=== PATIENT | female | born 1990 | race Caucasian/White ===

== ENCOUNTER 2016-06-25 11:20 | Emergency (ER) | payer SELFPAY ==
--- NOTE | 2016-06-28 18:24 | ER ---
ADMIT: 06/25/2016 RM/LOC: ER [facility] MR#: [id number] [place], [place] [address] [address] [place] [address] Emergency Room Report SEX: F AGE: 26 : 1990 DATE: 06/25/2016 The patient is a 26-year-old who presents to emergency room with 3 days of right hip pain. She denies any injury. No trauma. She states that she has felt some numbness in the medial aspect of her leg, down to her toe and some pull, dull aching pain on her right hip. REVIEW OF SYSTEMS: Otherwise negative. PAST MEDICAL HISTORY: Negative. PAST SURGICAL HISTORY: No surgeries. MEDICATIONS: She uses Mirena. ALLERGIES: SHE IS ALLERGIC TO PENICILLIN AND CECLOR. PHYSICAL EXAMINATION: She is tender right at the bursa on the right hip. No erythema in the skin, no bruising. No ecchymosis good range of motion although on deep palpation is tender. BACK: There is tenderness in the right mid gluteal area down to the mid medial aspect of knee and numbness in her toe. NEURO: She is oriented x4. Mood and affect appropriate. She has good pulses in the extremities and range of motion as well. CLINICAL IMPRESSION: Right hip bursitis and sciatica. Encouraged to use a pillow when she sleeps on her side to support the opposite leg. Medications as prescribed. She was given a shot of Norflex muscle relaxer. Given Flexeril for home use. Motrin and prednisone. Use ice to the affected area. Follow up with Dr. Derek Malin city call assigned provider. Increase fluids as tolerated. Do not drive under the influence of muscle relaxers. OLINDA Donahue / Timothy Mann MD / haleigh JOB #: [id number] CC: Timothy Mann MD, Attending Physician Marc Malin MD, Family Physician
== END 2016-06-25 12:30 | disposition home or self-care (01) ==
LOC: ER 11:20
DX: M70.71 Other bursitis of hip, right hip (principal); M54.31 Sciatica, right side; F17.210 Nicotine dependence, cigarettes, uncomplicated; Z88.0 Allergy status to penicillin

== ENCOUNTER 2016-08-15 11:58 | Emergency (ER) | payer SELFPAY ==
--- NOTE | 2016-08-23 18:05 | ER ---
ADMIT: 08/15/2016 RM/LOC: ER [facility] MR#: [id number] [place], [place] [address] [address] [place] [address] Emergency Room Report SEX: F AGE: 26 : 1990 DATE: 08/15/2016 CHIEF COMPLAINT: Neck pain. HISTORY OF PRESENT ILLNESS: This is a 26-year-old, white female, who presents to the ER complaining of neck pain. States she was at [employer] yesterday when she jumped off a bridge. States it was just about 6 feet above the water. Found the water to shallower than expected, landed on her feet and then her back. Complaints primarily of cervical spine pain from base of her skull down to C6-T1. Denies any acute neurological symptoms, tingling, numbness, inability to move extremities. Describes the pain as throbbing and has not taken any medications for it at this point. Associated with some weakness and headache, worse with movement. She has not tried anything other than ice for pain control at this time. COURSE IN THE EMERGENCY ROOM: The patient was seen examined. GENERAL: Afebrile nontoxic. No acute distress. NECK: She does have decreased range of motion. She has some spinal tenderness, primarily C6-T1. No lymphadenopathy. Decreased range of motion primarily secondary to pain. Back inspection exam is otherwise unremarkable. LUNGS: Clear bilaterally. HEART: Regular. NEUROLOGICAL: Motor is intact in the upper extremities compared bilaterally. Sensation intact to light touch. She has good executive kitchen manager strength bilaterally. Did give her routine cervical spine series, negative for any acute fractures. Normal alignment. She was given 15 mg of Toradol as well as Zofran while in the department today. She says her pain is mildly improving. IMPRESSION: Acute traumatic neck pain. DISPOSITION: Patient discharged to use Motrin [id number] 600 mg p.o. t.i.d. as needed for pain. I did provide her a soft collar to be used as needed. I also gave her a script for [place] 5/325, 1 or 2 tabs p.o. every 4 to 6 hours as needed for pain, #8. Encouraged not to drive or take Tylenol if she is going to use [place]. Activity as tolerated. Return with worsening signs or symptoms. Follow up with primary pain if pain is not improving. Questions sought and answered to best of my ability and the patient's satisfaction. Discharged in stable condition. OLINDA Figueroa / Vini Botello MD / jenniel JOB #: [id number] CC: Vini Botello MD, Attending Physician Esteban Comer MD, Family Physician
== END 2016-08-15 13:50 | disposition home or self-care (01) ==
LOC: ER 11:58
DX: M54.2 Cervicalgia (principal); F17.210 Nicotine dependence, cigarettes, uncomplicated; Z88.0 Allergy status to penicillin; Z88.1 Allergy status to other antibiotic agents; Z90.49 Acquired absence of other specified parts of digestive tract